=== PATIENT | female | born 1970 | race Hispanic/Latino ===

== ENCOUNTER 2022-09-01 07:53 | Emergency (ER) | payer OTHER, BC ==
[2022-09-01] MEDS ORDERED: Morphine 4 MG/ML VIAL ONE (08:14)
[2022-09-01] MEDS ORDERED: Ondansetron PF 4 MG/2 ML Vial ONE (08:15)
[2022-09-01 08:23] LABS: #Basophils 0.1 10x3/uL (0.0-0.2); #Eosinphils 0.1 10x3/uL (0.0-0.5); #Monocytes 0.4 10x3/uL (0.0-1.1); #Neutrophils 4.5 10x3/uL (1.5-8.4); %Basophils 0.7 % (0.0-2.0); %Eosinophils 1.1 % (0.0-6.0); %Lymphocytes 40.7 % (18.0-47.0); %Monocytes 4.4 % (0.0-10.0); %Neutrophils 52.7 % (40.0-75.0); Hemoglobin 15.1 g/dL (12.0-15.5); Mean Corpuscular HGB CONC 35.2 g/dL (32.0-36.0); Mean Corpuscular Hemoglobin 29.6 pg (27.0-33.0); Mean Corpuscular Volume 84.1 fl (81.6-98.3); Mean Platelet Volume 9.2 fl (7.4-10.4); Platelet Count 353 10x3/uL (150-450); RBC Distribution Width 12.1 % (11.5-14.5); White Blood Cell (WBC) Count 8.6 10x3/uL (3.5-10.5)
[2022-09-01 08:29] LABS: BHCG - Serum Negative (NEGATIVE); Pregs Control Background? CLEAR/WHITE (CLR/WHITE); Pregs Control Bar Appear? YES (CONTROL BAR)
[2022-09-01 08:35] LABS: ALT (SGPT) 312 U/L (8-55); AST (SGOT) 226 U/L (5-34); Albumin 4.5 g/dL (3.5-5.0); Alkaline Phosphatase 99 U/L (40-110); Anion Gap 17 mmol/L (10-20); BUN (Urea Nitrogen) 13 mg/dL (7.0-18.7); Bilirubin, Total 0.7 mg/dL (0.2-1.2); Calc. Creatinine Clearance 0 mL/min (70-130); Calcium 9.7 mg/dL (7.8-10.44); Carbon Dioxide 21 mmol/L (22-29); Chloride 106 mmol/L (98-107); Estimated GFR 106; Globulin 3.5 g/dL (2.4-3.5); Glucose 123 mg/dL (70-105); Sodium 140 mmol/L (136-145)
== END 2022-09-01 12:06 | disposition home or self-care (01) ==
LOC: CSHERS 07:53
DX: S70.01XA Contusion of right hip, initial encounter (principal); V19.9XXA Pedal cyclist (driver) (passenger) injured in unspecified traffic accident, initial encounter
CPT/HCPCS: 72170; 72192; 80053; 84703; 85025; 96374; 96375; J2270; J2405

== ENCOUNTER 2024-07-04 12:37 | Outpatient (CLI) | payer BC | END 2024-07-04 12:38 | disposition home or self-care (01) | LOC: CSHMAMMO 12:37 | PROVIDERS: ATTEND Family Medicine | DX: Z12.31 Encounter for screening mammogram for malignant neoplasm of breast (principal); N64.89 Other specified disorders of breast | CPT/HCPCS: 77063; 77067 ==

== ENCOUNTER 2024-08-22 22:44 | Inpatient (IN) | payer BC, SELFPAY ==
[2024-08-22 23:26] LABS: #Basophils 0.07 10x3/uL (0.0-0.2); #Eosinophils 0.11 10x3/uL (0.0-0.5); #Monocytes 0.33 10x3/uL (0.0-1.1); #Neutrophils 4.94 10x3/uL (1.5-8.4); %Basophils 0.9 % (0.0-2.0); %Eosinophils 1.5 % (0.0-6.0); %Lymphocytes 27.8 % (18.0-47.0); %Monocytes 4.4 % (0.0-10.0); %Neutrophils 65.1 % (40.0-75.0); Hematocrit 39.5 % (34.9-44.5); Hemoglobin 13.5 g/dL (12.0-15.5); Mean Corpuscular HGB CONC 34.2 g/dL (32.0-36.0); Mean Corpuscular Hemoglobin 28.5 pg (27.0-33.0); Mean Corpuscular Volume 83.5 fL (81.6-98.3); Mean Platelet Volume 8.5 fL (7.4-10.4); Platelet Count 465 10x3/uL (150-450); RBC Distribution Width 12.8 % (11.5-14.5); Red Blood Cell (RBC) Count 4.73 10x6/uL (3.90-5.03); White Blood Cell (WBC) Count 7.58 10x3/uL (3.5-10.5)
[2024-08-22 23:44] LABS: ALT (SGPT) 641 U/L (Less than 34); AST (SGOT) 654 U/L (11-34); Alkaline Phosphatase 112 U/L (40-110); Anion Gap 14 mmol/L (10-20); BUN (Urea Nitrogen) 11 mg/dL (9.8-20.1); Bilirubin, Total 0.4 mg/dL (0.3-1.2); Calc. Creatinine Clearance 0 mL/min (70-130); Calcium 9.6 mg/dL (7.8-10.44); Carbon Dioxide 25 mmol/L (22-29); Chloride 104 mmol/L (98-107); Estimated GFR 113; Globulin 3.5 g/dL (2.4-3.5); Glucose 139 mg/dL (70-105); Lipase 36 U/L (8-78); Protein, Total 7.5 g/dL (6.0-8.3); Sodium 139 mmol/L (136-145)
[2024-08-23 00:15] LABS: CK (CPK) 36296 U/L (29-168)
[2024-08-23] MEDS ORDERED: ADMIXTURE FEE IV SCH (01:30)
[2024-08-23] MEDS ORDERED: SODIUM CHLORIDE IV SCH (01:30)
[2024-08-23] MEDS ORDERED: SODIUM BICARBONATE IV SCH (01:30)
[2024-08-23] MEDS ORDERED: Morphine 4 MG/ML VIAL SLOW IVP PRN (03:17)
[2024-08-23] MEDS ORDERED: oxyCODONE 5 MG TAB PO PRN (03:17)
[2024-08-23] MEDS ORDERED: Ondansetron ODT 4 MG TAB PO PRN (03:17)
[2024-08-23 03:31] VITALS: BMI 26.2
[2024-08-23 04:41] LABS: Bilirubin Neg (Negative); Blood, Urine 50 (Negative); Glucose, Urine (Dipstick) Normal (Negative); Ketone, Urine Negative (Negative); Leukocyte 500 (Negative); Nitrite Negative (Negative); Protein, Urine (Dipstick) 30 mg/dl (Neg-Trace); Specific Gravity, Urine 1.015 (1.005-1.030); Urobilinogen Normal mg/dL (Less than 2)
[2024-08-23 04:49] LABS: Clarity Slightly Cloudy (Clear)
[2024-08-23 05:18] LABS: Bacteria/HPF 2+ HPF (None Seen)
[2024-08-23] MEDS: Lactated Ringer's 1,000 ML IV SCH (05:57)
[2024-08-23 06:35] LABS: ALT (SGPT) 527 U/L (Less than 34); AST (SGOT) 523 U/L (11-34); Anion Gap 13 mmol/L (10-20); BUN (Urea Nitrogen) 10 mg/dL (9.8-20.1); Bilirubin, Total 0.4 mg/dL (0.3-1.2); Calc. Creatinine Clearance 155 mL/min (70-130); Carbon Dioxide 25 mmol/L (22-29); Chloride 106 mmol/L (98-107); Estimated GFR 117; Glucose 114 mg/dL (70-105); Magnesium 1.9 mg/dL (1.6-2.6); Potassium 3.6 mmol/L (3.5-5.1); Sodium 140 mmol/L (136-145)
[2024-08-23 06:50] LABS: CK (CPK) 29788 U/L (29-168)
[2024-08-23] MEDS: Enoxaparin 40 MG (0.4 mL) SYRINGE SC SCH (08:27)
[2024-08-23 12:49] LABS: HBsAg Index 0.22 S/CO (0-0.99); Hep B Surf Ag Non-Reactive S/CO (NonReactive)
[2024-08-23 14:51] LABS: Hep A IgM AB NONREACTIVE (NonReactive); Hep A IgM S/CO 0.47 S/CO (0-0.79); Hep B Core IgM Index 0.12 S/CO (0-0.79); Hep C IgG Ab NONREACTIVE S/CO (NonReactive); Hep C Index 0.07 S/CO (0-0.79); Hepatitis B Core IgM Abs NONREACTIVE S/CO (NonReactive)
[2024-08-24 05:16] LABS: ALT (SGPT) 459 U/L (Less than 34); AST (SGOT) 419 U/L (11-34); Albumin 3.1 g/dL (3.1-4.5); Alkaline Phosphatase 76 U/L (40-110); Anion Gap 15 mmol/L (10-20); BUN (Urea Nitrogen) 8 mg/dL (9.8-20.1); Bilirubin, Direct 0.2 mg/dL (0.1-0.3); Bilirubin, Total 0.5 mg/dL (0.3-1.2); Calc. Creatinine Clearance 166 mL/min (70-130); Calcium 9.1 mg/dL (7.8-10.44); Carbon Dioxide 25 mmol/L (22-29); Chloride 108 mmol/L (98-107); Estimated GFR 119; Globulin 2.8 g/dL (2.4-3.5); Glucose 101 mg/dL (70-105); Iron 57 ug/dL (50-170); Iron Binding Capacity, Total 251 mcg/dL (265-497); Potassium 3.8 mmol/L (3.5-5.1); Protein, Total 5.9 g/dL (6.0-8.3); Sodium 144 mmol/L (136-145)
[2024-08-24 05:41] LABS: CK (CPK) 22605 U/L (29-168)
[2024-08-24 13:01] LABS: Immunoglob - G (Total IgG) 848 mg/dL (552-1631); Immunoglob - M (Total IgM) 108 mg/dL (33-293)
[2024-08-24 13:17] LABS: Vitamin D, 25 Hydroxy 25.8 ng/ml (> 30.0)
[2024-08-25 04:37] LABS: ALT (SGPT) 483 U/L (Less than 34); AST (SGOT) 462 U/L (11-34); Albumin 3.1 g/dL (3.1-4.5); Alkaline Phosphatase 77 U/L (40-110); Anion Gap 12 mmol/L (10-20); BUN (Urea Nitrogen) 6 mg/dL (9.8-20.1); Bilirubin, Direct 0.1 mg/dL (0.1-0.3); Bilirubin, Total 0.4 mg/dL (0.3-1.2); Calc. Creatinine Clearance 152 mL/min (70-130); Calcium 8.9 mg/dL (7.8-10.44); Carbon Dioxide 27 mmol/L (22-29); Chloride 106 mmol/L (98-107); Estimated GFR 116; Glucose 101 mg/dL (70-105); Potassium 3.6 mmol/L (3.5-5.1); Sodium 141 mmol/L (136-145)
[2024-08-25 05:07] LABS: CK (CPK) 25322 U/L (29-168)
[2024-08-25] MEDS: Cholecalciferol 1,000 UNITS (25 MCG) TAB PO SCH (08:22)
[2024-08-25 11:35] LABS: ANA Symphony (Qualitative) Negative (Negative); ANA Symphony (Quantitative) 0.2 Ratio (< 0.7 Negative); EliA Vaculitis New Method **** NEW METHOD ****; Mitochondrial Ab 0.7 U/mL (<4 Negative)
[2024-08-26 04:09] LABS: Phosphorus 5.4 mg/dL (2.5-4.5)
[2024-08-26 04:17] LABS: ALT (SGPT) 472 U/L (Less than 34); AST (SGOT) 466 U/L (11-34); Albumin 3.1 g/dL (3.1-4.5); Alkaline Phosphatase 81 U/L (40-110); Anion Gap 14 mmol/L (10-20); BUN (Urea Nitrogen) 6 mg/dL (9.8-20.1); Bilirubin, Total 0.4 mg/dL (0.3-1.2); Calc. Creatinine Clearance 152 mL/min (70-130); Calcium 9.2 mg/dL (7.8-10.44); Carbon Dioxide 24 mmol/L (22-29); Chloride 107 mmol/L (98-107); Estimated GFR 116; Globulin 2.9 g/dL (2.4-3.5); Glucose 104 mg/dL (70-105); Potassium 3.8 mmol/L (3.5-5.1); Sodium 141 mmol/L (136-145)
[2024-08-26 04:41] LABS: CK (CPK) 25350 U/L (29-168)
[2024-08-26 12:09] LABS: Uric Acid 5.2 mg/dL (2.5-6.2)
[2024-08-27 03:53] LABS: #Basophils 0.05 10x3/uL (0.0-0.2); #Eosinophils 0.17 10x3/uL (0.0-0.5); #Monocytes 0.41 10x3/uL (0.0-1.1); #Neutrophils 4.43 10x3/uL (1.5-8.4); %Basophils 0.7 % (0.0-2.0); %Eosinophils 2.5 % (0.0-6.0); %Lymphocytes 25.7 % (18.0-47.0); %Neutrophils 64.7 % (40.0-75.0); Hematocrit 36.2 % (34.9-44.5); Mean Corpuscular HGB CONC 33.1 g/dL (32.0-36.0); Mean Corpuscular Hemoglobin 27.8 pg (27.0-33.0); Mean Platelet Volume 8.8 fL (7.4-10.4); Platelet Count 448 10x3/uL (150-450); RBC Distribution Width 12.9 % (11.5-14.5); Red Blood Cell (RBC) Count 4.31 10x6/uL (3.90-5.03); White Blood Cell (WBC) Count 6.85 10x3/uL (3.5-10.5)
[2024-08-27 04:05] LABS: PTT 26.8 sec (22.0-33.0); Prothrombin Time 10.9 sec (9.5-12.1)
[2024-08-27 04:17] LABS: ALT (SGPT) 477 U/L (Less than 34); AST (SGOT) 461 U/L (11-34); Albumin 3.1 g/dL (3.1-4.5); Alkaline Phosphatase 79 U/L (40-110); Anion Gap 15 mmol/L (10-20); BUN (Urea Nitrogen) 5 mg/dL (9.8-20.1); Bilirubin, Total 0.4 mg/dL (0.3-1.2); Calc. Creatinine Clearance 155 mL/min (70-130); Calcium 9.6 mg/dL (7.8-10.44); Carbon Dioxide 24 mmol/L (22-29); Chloride 107 mmol/L (98-107); Estimated GFR 117; Globulin 2.9 g/dL (2.4-3.5); Glucose 105 mg/dL (70-105); Magnesium 1.6 mg/dL (1.6-2.6); Potassium 3.6 mmol/L (3.5-5.1); Sodium 142 mmol/L (136-145)
[2024-08-27 04:33] LABS: CK (CPK) 23876 U/L (29-168)
[2024-08-27 12:49] LABS: Ref Lab Test Ordered Anti-HMGCR Ab (RDL); Reference Lab Name LABCORP
[2024-08-27] MEDS: Sodium Chloride 0.9% 1,000 ML IV SCH (13:35)
[2024-08-27 19:04] LABS: Bacteria/HPF 4+ HPF (None Seen); RBC/HPF 0-3 HPF (0-3); Squamous Epithelial 0-3 HPF (0-3)
[2024-08-27 19:32] LABS: Creatinine, Urine 17.97 mg/dL (15.00-278.00); Protein, Urine Random Quant Less than 10 mg/dL (1-14)
[2024-08-27] MEDS: methylPREDNISolone Sod Succ 1 GM, Admixture Fee 1 EACH in Sodium Chloride 0.9% 100 ML IVPB SCH (20:49)
[2024-08-28 00:03] LABS: Amphetamine Not Detected (NotDetected); Barbiturates Screen Not Detected (NotDetected); Benzodiazepine Screen Not Detected (NotDetected); Cocaine Metabolite Screen Not Detected (NotDetected); Methadone Not Detected (NotDetected); Methamphetamine Not Detected (NotDetected); Opiate Screen Not Detected (NotDetected); Oxycodone Screen Not Detected (NotDetected); Phencyclidine (PCP) Not Detected (NotDetected); THC/Cannabinoid Screen Not Detected (NotDetected); Tricyclic Screen Not Detected (NotDetected)
[2024-08-28 03:56] LABS: #Basophils 0.03 10x3/uL (0.0-0.2); #Eosinophils Less than 0.03 10x3/uL (0.0-0.5); #Monocytes 0.03 10x3/uL (0.0-1.1); %Basophils 0.4 % (0.0-2.0); %Lymphocytes 13.1 % (18.0-47.0); %Monocytes 0.4 % (0.0-10.0); Hematocrit 38.4 % (34.9-44.5); Hemoglobin 12.8 g/dL (12.0-15.5); Mean Corpuscular HGB CONC 33.3 g/dL (32.0-36.0); Mean Corpuscular Hemoglobin 27.8 pg (27.0-33.0); Mean Corpuscular Volume 83.5 fL (81.6-98.3); Mean Platelet Volume 9.1 fL (7.4-10.4); Platelet Count 463 10x3/uL (150-450); RBC Distribution Width 12.9 % (11.5-14.5); White Blood Cell (WBC) Count 7.56 10x3/uL (3.5-10.5)
[2024-08-28 04:19] LABS: ALT (SGPT) 583 U/L (Less than 34); AST (SGOT) 498 U/L (11-34); Albumin 3.6 g/dL (3.1-4.5); Alkaline Phosphatase 83 U/L (40-110); Anion Gap 14 mmol/L (10-20); BUN (Urea Nitrogen) 7 mg/dL (9.8-20.1); Bilirubin, Total 0.5 mg/dL (0.3-1.2); Calc. Creatinine Clearance 152 mL/min (70-130); Calcium 8.9 mg/dL (7.8-10.44); Carbon Dioxide 23 mmol/L (22-29); Chloride 108 mmol/L (98-107); Estimated GFR 116; Globulin 3.3 g/dL (2.4-3.5); Glucose 186 mg/dL (70-105); Magnesium 1.8 mg/dL (1.6-2.6); Potassium 3.7 mmol/L (3.5-5.1); Protein, Total 6.9 g/dL (6.0-8.3); Sodium 141 mmol/L (136-145)
[2024-08-28 04:33] LABS: CK (CPK) 27682 U/L (29-168)
[2024-08-28 04:40] LABS: Free T4 (Free Thyroxine) 1.06 ng/dL (0.70-1.48); Thyroid Stimulating Hormone 3.108 uIU/mL (0.35-4.94)
[2024-08-28] MEDS: Lactated Ringer's 1,000 ML IV SCH (07:53)
[2024-08-28] MEDS: methylPREDNISolone Sod Succ/PF 125 MG/2 ML VIAL IVP SCH (18:23)
[2024-08-28 22:07] LABS: Glucose POC Confirmation 176 mg/dL (70-105)
[2024-08-29 04:48] LABS: #Basophils Less than 0.03 10x3/uL (0.0-0.2); #Eosinophils 0.04 10x3/uL (0.0-0.5); #Monocytes 0.37 10x3/uL (0.0-1.1); #Neutrophils 11.45 10x3/uL (1.5-8.4); %Basophils 0.1 % (0.0-2.0); %Eosinophils 0.3 % (0.0-6.0); %Monocytes 2.8 % (0.0-10.0); %Neutrophils 85.2 % (40.0-75.0); Hematocrit 32.4 % (34.9-44.5); Hemoglobin 10.8 g/dL (12.0-15.5); Mean Corpuscular HGB CONC 33.3 g/dL (32.0-36.0); Mean Corpuscular Hemoglobin 28.1 pg (27.0-33.0); Mean Corpuscular Volume 84.2 fL (81.6-98.3); Mean Platelet Volume 8.9 fL (7.4-10.4); Platelet Count 440 10x3/uL (150-450); RBC Distribution Width 13.2 % (11.5-14.5); Red Blood Cell (RBC) Count 3.85 10x6/uL (3.90-5.03); White Blood Cell (WBC) Count 13.42 10x3/uL (3.5-10.5)
[2024-08-29 05:05] LABS: PTT 25.3 sec (22.0-33.0); Prothrombin Time 10.6 sec (9.5-12.1)
[2024-08-29 05:07] LABS: ALT (SGPT) 520 U/L (Less than 34); AST (SGOT) 322 U/L (11-34); Albumin 3.4 g/dL (3.1-4.5); Alkaline Phosphatase 77 U/L (40-110); Anion Gap 13 mmol/L (10-20); BUN (Urea Nitrogen) 10 mg/dL (9.8-20.1); Bilirubin, Total 0.3 mg/dL (0.3-1.2); Calc. Creatinine Clearance 162 mL/min (70-130); Calcium 8.6 mg/dL (7.8-10.44); Carbon Dioxide 23 mmol/L (22-29); Chloride 110 mmol/L (98-107); Estimated GFR 118; Globulin 2.9 g/dL (2.4-3.5); Glucose 174 mg/dL (70-105); Magnesium 1.9 mg/dL (1.6-2.6); Potassium 3.6 mmol/L (3.5-5.1); Protein, Total 6.3 g/dL (6.0-8.3); Sodium 142 mmol/L (136-145)
[2024-08-29 05:41] LABS: CK (CPK) 15301 U/L (29-168)
[2024-08-29] MEDS: Lactated Ringer's 1,000 ML IV SCH (08:18)
[2024-08-29 14:19] LABS: Complement-C3 143 mg/dL (83-193); Complement-C4 18 mg/dL (15-57)
[2024-08-29 14:33] LABS: Reference Lab Name LABCORP
[2024-08-30 05:19] LABS: #Basophils Less than 0.03 10x3/uL (0.0-0.2); #Eosinophils Less than 0.03 10x3/uL (0.0-0.5); #Monocytes 0.32 10x3/uL (0.0-1.1); #Neutrophils 9.55 10x3/uL (1.5-8.4); %Basophils 0.1 % (0.0-2.0); %Lymphocytes 12.3 % (18.0-47.0); %Monocytes 2.8 % (0.0-10.0); %Neutrophils 84.3 % (40.0-75.0); Hematocrit 34.6 % (34.9-44.5); Hemoglobin 10.9 g/dL (12.0-15.5); Mean Corpuscular HGB CONC 31.5 g/dL (32.0-36.0); Mean Corpuscular Hemoglobin 26.8 pg (27.0-33.0); Mean Corpuscular Volume 85.2 fL (81.6-98.3); Mean Platelet Volume 9.2 fL (7.4-10.4); Platelet Count 447 10x3/uL (150-450); RBC Distribution Width 13.2 % (11.5-14.5); Red Blood Cell (RBC) Count 4.06 10x6/uL (3.90-5.03); White Blood Cell (WBC) Count 11.33 10x3/uL (3.5-10.5)
[2024-08-30 05:38] LABS: ALT (SGPT) 557 U/L (Less than 34); AST (SGOT) 305 U/L (11-34); Albumin 3.4 g/dL (3.1-4.5); Alkaline Phosphatase 81 U/L (40-110); Anion Gap 13 mmol/L (10-20); BUN (Urea Nitrogen) 11 mg/dL (9.8-20.1); Bilirubin, Total 0.3 mg/dL (0.3-1.2); Calc. Creatinine Clearance 180 mL/min (70-130); Calcium 8.5 mg/dL (7.8-10.44); Carbon Dioxide 24 mmol/L (22-29); Chloride 109 mmol/L (98-107); Estimated GFR 121; Glucose 155 mg/dL (70-105); Magnesium 1.9 mg/dL (1.6-2.6); Potassium 3.6 mmol/L (3.5-5.1); Protein, Total 6.4 g/dL (6.0-8.3); Sodium 142 mmol/L (136-145)
[2024-08-30 05:49] LABS: CK (CPK) 12138 U/L (29-168)
[2024-08-30] MEDS: Magnesium 2 GM/50 ML(in water) 2 GM in Premix 1 BAG IVPB SCH (09:14)
[2024-08-30] MEDS: Potassium Chloride 20 MEQ TAB PO SCH (09:14)
[2024-08-30] MEDS: predniSONE 20 MG TAB PO SCH (09:15)
[2024-08-30] MEDS: Lactated Ringer's 1,000 ML IV SCH (09:16)
[2024-08-31 05:39] LABS: #Basophils 0.04 10x3/uL (0.0-0.2); #Eosinophils 0.03 10x3/uL (0.0-0.5); #Monocytes 0.64 10x3/uL (0.0-1.1); #Neutrophils 6.65 10x3/uL (1.5-8.4); %Basophils 0.4 % (0.0-2.0); %Eosinophils 0.3 % (0.0-6.0); %Lymphocytes 28.8 % (18.0-47.0); %Monocytes 6.1 % (0.0-10.0); %Neutrophils 63.9 % (40.0-75.0); Hematocrit 35.9 % (34.9-44.5); Hemoglobin 11.6 g/dL (12.0-15.5); Mean Corpuscular HGB CONC 32.3 g/dL (32.0-36.0); Mean Corpuscular Hemoglobin 27.9 pg (27.0-33.0); Mean Corpuscular Volume 86.3 fL (81.6-98.3); Platelet Count 472 10x3/uL (150-450); RBC Distribution Width 13.4 % (11.5-14.5); Red Blood Cell (RBC) Count 4.16 10x6/uL (3.90-5.03); White Blood Cell (WBC) Count 10.41 10x3/uL (3.5-10.5)
[2024-08-31 06:01] LABS: ALT (SGPT) 503 U/L (Less than 34); AST (SGOT) 253 U/L (11-34); Albumin 3.1 g/dL (3.1-4.5); Alkaline Phosphatase 72 U/L (40-110); Anion Gap 14 mmol/L (10-20); BUN (Urea Nitrogen) 12 mg/dL (9.8-20.1); Bilirubin, Total 0.3 mg/dL (0.3-1.2); Calc. Creatinine Clearance 162 mL/min (70-130); Calcium 8.5 mg/dL (7.8-10.44); Carbon Dioxide 25 mmol/L (22-29); Chloride 107 mmol/L (98-107); Estimated GFR 118; Globulin 2.4 g/dL (2.4-3.5); Glucose 98 mg/dL (70-105); Phosphorus 3.5 mg/dL (2.5-4.5); Potassium 3.6 mmol/L (3.5-5.1); Protein, Total 5.5 g/dL (6.0-8.3); Sodium 142 mmol/L (136-145)
[2024-08-31 06:25] LABS: CK (CPK) 9833 U/L (29-168)
[2024-08-31] MEDS: Potassium Chloride 20 MEQ TAB PO SCH (09:36)
[2024-08-31] MEDS: predniSONE 20 MG TAB PO SCH (09:36)
[2024-08-31 10:25] VITALS: BMI 26.2
[2024-08-31] MEDS: Lactated Ringer's 500 ML IV SCH (16:48)
[2024-09-01 04:28] LABS: Magnesium 1.9 mg/dL (1.6-2.6)
[2024-09-01 05:33] LABS: #Basophils 0.03 10x3/uL (0.0-0.2); #Eosinophils 0.08 10x3/uL (0.0-0.5); #Monocytes 0.63 10x3/uL (0.0-1.1); #Neutrophils 6.82 10x3/uL (1.5-8.4); %Basophils 0.3 % (0.0-2.0); %Eosinophils 0.7 % (0.0-6.0); %Monocytes 5.8 % (0.0-10.0); %Neutrophils 62.6 % (40.0-75.0); Mean Corpuscular HGB CONC 33.3 g/dL (32.0-36.0); Mean Corpuscular Hemoglobin 28.2 pg (27.0-33.0); Mean Corpuscular Volume 84.7 fL (81.6-98.3); Mean Platelet Volume 8.7 fL (7.4-10.4); Platelet Count 456 10x3/uL (150-450); RBC Distribution Width 13.2 % (11.5-14.5); Red Blood Cell (RBC) Count 4.25 10x6/uL (3.90-5.03); White Blood Cell (WBC) Count 10.88 10x3/uL (3.5-10.5)
[2024-09-01 05:55] LABS: ALT (SGPT) 486 U/L (Less than 34); AST (SGOT) 264 U/L (11-34); Alkaline Phosphatase 67 U/L (40-110); Anion Gap 13 mmol/L (10-20); BUN (Urea Nitrogen) 12 mg/dL (9.8-20.1); Bilirubin, Total 0.4 mg/dL (0.3-1.2); Calc. Creatinine Clearance 162 mL/min (70-130); Calcium 8.6 mg/dL (7.8-10.44); Carbon Dioxide 25 mmol/L (22-29); Chloride 108 mmol/L (98-107); Estimated GFR 118; Globulin 2.6 g/dL (2.4-3.5); Glucose 95 mg/dL (70-105); Potassium 3.5 mmol/L (3.5-5.1); Protein, Total 5.6 g/dL (6.0-8.3); Sodium 142 mmol/L (136-145)
[2024-09-01 06:43] LABS: CK (CPK) 10263 U/L (29-168)
[2024-09-01] MEDS: Lactated Ringer's 1,000 ML IV SCH ×2 (09:45→11:44)
[2024-09-01] MEDS: predniSONE 20 MG TAB PO SCH (09:45)
[2024-09-02 03:59] LABS: ALT (SGPT) 482 U/L (Less than 34); AST (SGOT) 282 U/L (11-34); Alkaline Phosphatase 71 U/L (40-110); Anion Gap 15 mmol/L (10-20); BUN (Urea Nitrogen) 11 mg/dL (9.8-20.1); Bilirubin, Total 0.4 mg/dL (0.3-1.2); CK (CPK) 11394 U/L (29-168); Calc. Creatinine Clearance 162 mL/min (70-130); Calcium 8.7 mg/dL (7.8-10.44); Carbon Dioxide 25 mmol/L (22-29); Chloride 106 mmol/L (98-107); Estimated GFR 118; Globulin 2.6 g/dL (2.4-3.5); Glucose 102 mg/dL (70-105); Potassium 3.5 mmol/L (3.5-5.1); Protein, Total 5.6 g/dL (6.0-8.3); Sodium 142 mmol/L (136-145)
[2024-09-03 04:27] LABS: #Basophils Less than 0.03 10x3/uL (0.0-0.2); #Eosinophils 0.09 10x3/uL (0.0-0.5); #Neutrophils 7.61 10x3/uL (1.5-8.4); %Basophils 0.2 % (0.0-2.0); %Eosinophils 0.8 % (0.0-6.0); %Lymphocytes 27.9 % (18.0-47.0); %Neutrophils 64.6 % (40.0-75.0); Hematocrit 35.2 % (34.9-44.5); Hemoglobin 11.4 g/dL (12.0-15.5); Mean Corpuscular HGB CONC 32.4 g/dL (32.0-36.0); Mean Corpuscular Hemoglobin 27.4 pg (27.0-33.0); Mean Corpuscular Volume 84.6 fL (81.6-98.3); Mean Platelet Volume 9.2 fL (7.4-10.4); Platelet Count 433 10x3/uL (150-450); RBC Distribution Width 13.5 % (11.5-14.5); Red Blood Cell (RBC) Count 4.16 10x6/uL (3.90-5.03); White Blood Cell (WBC) Count 11.76 10x3/uL (3.5-10.5)
[2024-09-03 04:46] LABS: ALT (SGPT) 475 U/L (Less than 34); AST (SGOT) 268 U/L (11-34); Albumin 3.1 g/dL (3.1-4.5); Alkaline Phosphatase 67 U/L (40-110); Anion Gap 12 mmol/L (10-20); BUN (Urea Nitrogen) 9 mg/dL (9.8-20.1); Bilirubin, Total 0.4 mg/dL (0.3-1.2); CK (CPK) 10547 U/L (29-168); Calc. Creatinine Clearance 166 mL/min (70-130); Calcium 8.6 mg/dL (7.8-10.44); Carbon Dioxide 26 mmol/L (22-29); Chloride 106 mmol/L (98-107); Estimated GFR 119; Globulin 2.5 g/dL (2.4-3.5); Glucose 98 mg/dL (70-105); Potassium 3.3 mmol/L (3.5-5.1); Protein, Total 5.6 g/dL (6.0-8.3); Sodium 141 mmol/L (136-145)
[2024-09-03] MEDS: Potassium Chloride 20 MEQ TAB PO SCH (18:29)
[2024-09-04 04:22] LABS: ALT (SGPT) 502 U/L (Less than 34); AST (SGOT) 283 U/L (11-34); Albumin 3.3 g/dL (3.1-4.5); Alkaline Phosphatase 67 U/L (40-110); Anion Gap 15 mmol/L (10-20); BUN (Urea Nitrogen) 8 mg/dL (9.8-20.1); Bilirubin, Total 0.5 mg/dL (0.3-1.2); Calc. Creatinine Clearance 171 mL/min (70-130); Calcium 8.9 mg/dL (7.8-10.44); Carbon Dioxide 25 mmol/L (22-29); Chloride 105 mmol/L (98-107); Estimated GFR 120; Globulin 2.7 g/dL (2.4-3.5); Glucose 95 mg/dL (70-105); Magnesium 1.8 mg/dL (1.6-2.6); Potassium 3.9 mmol/L (3.5-5.1); Sodium 141 mmol/L (136-145)
[2024-09-04 04:34] LABS: CK (CPK) 11003 U/L (29-168)
[2024-09-04] MEDS: Lactated Ringer's 1,000 ML IV SCH (11:43)
[2024-09-05] MEDS: predniSONE 20 MG TAB PO SCH (08:19)
[2024-09-05 08:56] LABS: Anion Gap 17 mmol/L (10-20); BUN (Urea Nitrogen) 8 mg/dL (9.8-20.1); Calc. Creatinine Clearance 159 mL/min (70-130); Calcium 9.3 mg/dL (7.8-10.44); Carbon Dioxide 25 mmol/L (22-29); Chloride 105 mmol/L (98-107); Estimated GFR 118; Glucose 97 mg/dL (70-105); Potassium 3.6 mmol/L (3.5-5.1); Sodium 143 mmol/L (136-145)
[2024-09-05 09:41] LABS: CK (CPK) 10668 U/L (29-168)
[2024-09-05 09:57] LABS: ALT (SGPT) 522 U/L (Less than 34); AST (SGOT) 290 U/L (11-34); Albumin 3.6 g/dL (3.1-4.5); Alkaline Phosphatase 69 U/L (40-110); Bilirubin, Direct 0.1 mg/dL (0.1-0.3); Bilirubin, Total 0.5 mg/dL (0.3-1.2); Protein, Total 6.3 g/dL (6.0-8.3)
[2024-09-06 05:48] LABS: ALT (SGPT) 462 U/L (Less than 34); AST (SGOT) 272 U/L (11-34); Albumin 3.1 g/dL (3.1-4.5); Alkaline Phosphatase 59 U/L (40-110); Anion Gap 13 mmol/L (10-20); BUN (Urea Nitrogen) 7 mg/dL (9.8-20.1); Bilirubin, Total 0.4 mg/dL (0.3-1.2); CK (CPK) 10222 U/L (29-168); Calc. Creatinine Clearance 166 mL/min (70-130); Calcium 8.3 mg/dL (7.8-10.44); Carbon Dioxide 25 mmol/L (22-29); Chloride 107 mmol/L (98-107); Estimated GFR 119; Globulin 2.4 g/dL (2.4-3.5); Glucose 94 mg/dL (70-105); Potassium 3.5 mmol/L (3.5-5.1); Protein, Total 5.5 g/dL (6.0-8.3); Sodium 141 mmol/L (136-145)
[2024-09-07 05:46] LABS: ALT (SGPT) 482 U/L (Less than 34); AST (SGOT) 272 U/L (11-34); Albumin 3.1 g/dL (3.1-4.5); Alkaline Phosphatase 60 U/L (40-110); Anion Gap 13 mmol/L (10-20); BUN (Urea Nitrogen) 8 mg/dL (9.8-20.1); Bilirubin, Total 0.5 mg/dL (0.3-1.2); Calc. Creatinine Clearance 162 mL/min (70-130); Calcium 8.4 mg/dL (7.8-10.44); Carbon Dioxide 28 mmol/L (22-29); Chloride 106 mmol/L (98-107); Estimated GFR 118; Globulin 2.5 g/dL (2.4-3.5); Glucose 100 mg/dL (70-105); Potassium 3.5 mmol/L (3.5-5.1); Protein, Total 5.6 g/dL (6.0-8.3); Sodium 143 mmol/L (136-145)
[2024-09-07 05:59] LABS: CK (CPK) 10505 U/L (29-168)
[2024-09-07] MEDS: Lactated Ringer's 1,000 ML IV SCH (13:37)
[2024-09-07] MEDS: methylPREDNISolone Sod Succ 40 MG VIAL IVP SCH (14:50)
[2024-09-08 04:33] LABS: ALT (SGPT) 579 U/L (Less than 34); AST (SGOT) 299 U/L (11-34); Albumin 3.7 g/dL (3.1-4.5); Alkaline Phosphatase 76 U/L (40-110); Anion Gap 15 mmol/L (10-20); BUN (Urea Nitrogen) 10 mg/dL (9.8-20.1); Bilirubin, Total 0.3 mg/dL (0.3-1.2); Calc. Creatinine Clearance 155 mL/min (70-130); Calcium 8.9 mg/dL (7.8-10.44); Carbon Dioxide 24 mmol/L (22-29); Chloride 106 mmol/L (98-107); Estimated GFR 117; Glucose 169 mg/dL (70-105); Potassium 3.9 mmol/L (3.5-5.1); Protein, Total 6.7 g/dL (6.0-8.3); Sodium 141 mmol/L (136-145)
[2024-09-08 05:03] LABS: CK (CPK) 12260 U/L (29-168)
[2024-09-08 11:53] VITALS: BP 137/69; TEMP 97.9
== END 2024-09-08 16:50 | disposition left against medical advice (07) | DRG 442 ==
LOC: CSHERS 22:44 → CSHTELE 08-23 02:01 → INTOOBSV 08-23 02:01 → OBSVTOIN 08-24 08:22
PROVIDERS: ADMIT Family Medicine; ATTEND Internal Medicine
DX: K71.6 Toxic liver disease with hepatitis, not elsewhere classified (principal); M62.82 Rhabdomyolysis; E11.9 Type 2 diabetes mellitus without complications; I10 Essential (primary) hypertension; Z79.899 Other long term (current) drug therapy; Z86.73 Personal history of transient ischemic attack (TIA), and cerebral infarction without residual deficits; E78.00 Pure hypercholesterolemia, unspecified; E03.8 Other specified hypothyroidism; E55.9 Vitamin D deficiency, unspecified
CPT/HCPCS: 36415; 71045; 76705; 80048; 80053; 80074; 80076; 80306; 81001; 81015; 82085; 82247; 82306; 82390; 82550; 82570; 82728; 82977; 83036; 83516; 83540; 83550; 83615; 83690; 83735; 83874; 84100; 84156; 84439; 84443; 84450; 84460; 84481; 84550; 85025; 85610; 85730; 86015; 86038; 86140; 86160; 86225; 93005; 93010; 93306; 93970; 96372; 96374; G0378; J1650; J2919; J2930; J3475; J7030; J7120; J7512